=== PATIENT | female | born 1960 | race Asian ===

== ENCOUNTER 2018-10-13 05:16 | Inpatient (IN) | payer OTHER ==
[2018-10-13] VITALS (24 sets, daily range): BP systolic 110–150; BP diastolic 59–82; PULSE 86–98; RESP 16–20; Ht 157.5 cm; Wt 59.2 kg
[~2018-10-13] VITALS: Ht 157.5 cm; Wt 59.2 kg
[2018-10-13] MEDS ORDERED: SOD CHLORIDE 0.9% 1,000 ML IV SCH (06:00)
[2018-10-13] MEDS ORDERED: CEFAZOLIN 2 GM/50 ML (PMX) 50 ML IVPB ONE (06:00)
[2018-10-13] MEDS ORDERED: SUCCINYLCHOLINE CHLORIDE 100 MG/5 ML SYG IV ONE (07:00)
[2018-10-13] MEDS ORDERED: CEFAZOLIN 1 GM INJ ONE (07:00)
[2018-10-13] MEDS ORDERED: BUPIVACAINE 0.25% (MPF) 30 ML INJ ONE (07:03)
--- NOTE | 2018-10-13 07:37 | PREAC ---
Date/Time of Note Date/Time of Note DATE: 10/13/18 TIME: 07:35 Anesthesia Eval and Record Evaluation Time Pre-Procedure Interview DATE: 10/13/18 TIME: 07:35 Age 58 Sex female NPO: 8 hrs Preoperative diagnosis total thyroidectomy enlarged thyroid Planned procedure total thyroidectomy Past Medical History Past Medical History: Includes Cardio: HTN, Dyslipidemia Endo: Diabetes Neuro: Other (eye blindness ) Surgery & Anesthesia Issues No known issue Meds Anticoagulation: No Beta Shea within 24 hr: No Reason Beta Shea not given: Pt. not on B-Shea Current Medications Sodium Chloride 1,000 ml @ 75 mls/hr [id number] IV ; Start 10/13/18 at 06:00; Stop 10/13/18 at 19:19 Meds reviewed: Yes Allergies Coded Allergies: No Known Drug Allergies (Unverified Allergy, Unknown, 10/12/18) Allergies Reviewed: Yes Labs/Studies Labs Reviewed: Reviewed by anesthesiologist test: N/A Pre-procedure Exam Last vitals Vital Signs Date Temp Pulse Resp B/P (MAP) Pulse Ox O2 O2 Flow FiO2 Time Delivery Rate 10/13/18 98.2 97 18 126/76 95 Room Air 06:11 (93) Airway: Adequate mouth opening, Adequate thyromental dist Mallampati: Mallampati IV Teeth: Normal Lung: Normal Heart: Normal ASA Physical Status ASA physical status: 3 Emergency: None Planned Anesthetic General/MAC: ETT Pre-operative Attestations Prior to commencing anesthesia and surgery, the patient was re-evaluated, there was verification of: *The patient's identity *The results of appropriate recent lab work and preoperative vital signs *The above evaluation not changing prior to induction *Anesthetic plan, risk benefits, alternative and complications discussed with patient/family; questions answered; patient/family understands, accepts and wishes to proceed. GERBER SAUNDERS DO Oct 13, 2018 07:37
[2018-10-13] MEDS ORDERED: PROPOFOL 20 ML ONE (07:46)
[2018-10-13] MEDS ORDERED: MIDAZOLAM 1 MG/ML 2 ML INJ ONE (07:46)
[2018-10-13] MEDS ORDERED: LIDOCAINE 1% (MDV) 20 ML INJ ONE (07:47)
[2018-10-13] MEDS ORDERED: DEXAMETHASONE 4 MG/ML 5 ML INJ ONE (07:58)
[2018-10-13] MEDS ORDERED: ONDANSETRON 4 MG INJ ONE (07:58)
[2018-10-13] MEDS ORDERED: LABETALOL HCL 20MG INJ IV PRN (08:00)
[2018-10-13] MEDS ORDERED: HYDROmorphONE 1 MG/5 ML IV SYRINGE IV PRN ×2 (08:00)
[2018-10-13] MEDS ORDERED: ONDANSETRON 4 MG INJ IV PRN (08:00)
[2018-10-13] MEDS ORDERED: hydrALAzine 20 MG INJ IV PRN (08:00)
[2018-10-13] MEDS ORDERED: PHENYLephrine (100 MCG/ML) 5ML SYG ONE (08:08)
[2018-10-13] MEDS: SOD CHLORIDE 0.9% 1,000 ML IV SCH ×3 (09:03→20:49)
--- NOTE | 2018-10-13 09:04 | PAC ---
Date/Time of Note Date/Time of Note DATE: 10/13/18 TIME: 09:04 Post-Anesthesia Notes Post-Anesthesia Note Last documented vital signs Vital Signs Date Temp Pulse Resp B/P (MAP) Pulse Ox O2 O2 Flow FiO2 Time Delivery Rate 10/13/18 98 97 19 99/57 97 Room Air 0904 Activity: WNL Respiratory function: WNL Cardiovascular function: WNL Mental status: Baseline Pain reasonably controlled: Yes Hydration appropriate: Yes Nausea/Vomiting absent: Yes GERBER SAUNDERS DO Oct 13, 2018 09:04
--- NOTE | 2018-10-13 09:13 | OPR ---
Date/Time of Note Date/Time of Note DATE: 10/13/18 TIME: 09:05 Operative Report Procedure Date: Oct 13, 2018 Preoperative Diagnosis right thyroid nodule Postoperative Diagnosis same Operation/Procedure Performed 1. right thyroid lobectomy 2. localized adjacent tissue transfer with the use of skin flaps 12 sq cm defect in the neck 3. therapeutic injection of subcutaneous local anesthesia Surgeon see signature line Healthcare Specialist Mercy Kay PA-C Anesthesia Type: general Estimated Blood Loss: 0 - 10 ml's Transfusion none Specimen right thyroid lobe and isthmus with single short right upper lobe marking and double short right lower lobe marking Grafts/Implants none Complications none Pt Condition Post Procedure: stable Indications This is a 58-year-old female with symptomatic right thyroid nodule. She also has enlargement of the right thyroid lobe causing pressure symptoms with swallowing. She had an FNA showing biphasic criteria 3 however the majority of her complaint is the pressure from the enlarged right thyroid lobe. Careful consideration was made and a full discussion was made with the patient and son regarding a total thyroidectomy versus a right lobectomy. This decision was to be made in the operating room however both options were discussed with the patient and they were okay with the decision to proceed with surgery. Risks alternatives benefits and percent were discussed the patient. She expressed understanding consents to the operation. Procedure Description Patient is taken to the OR and prepped and draped in usual sterile fashion. Surgical time was performed. IV antibiotics were given. Collar incision was made with a 15 blade. Dissection was was taken down to the platysmal layer. Superior inferior platysmal flaps were created. Parada retractors were placed and the strap muscles were divided in the midline and retracted laterally. Immediate attention was focused on the right thyroid lobe which was enlarged and prominent. The left side appeared normal. The right thyroid lobe was then dissected out. The middle thyroidal vein was ligated with had a LigaSure. The inferior superior poles were carefully dissected out. The isthmus and the pretracheal space was also dissected out bluntly with tonsils. Careful dissection was made to keep the right recurrent laryngeal nerve out of harm's way and the right thyroid lobe was mobilized. Inspection was then made of the left thyroid lobe and the left thyroid lobe appeared to be normal but attenuated in size. Further dissection the left thyroid lobe was not made. The isthmus was also divided left of midline. In the right thyroid lobe was performed. Superior pole of the right thyroid lobe was marked with a single short stitch. Right inferior lobe was marked with double short stitch. Hemostasis was established in the surgical bed. The specimen was sent. The surgical site was irrigated with water and a Valsalva maneuver 40 cm of water was performed. No evidence of any bleeding was found. Strap muscles were reapproximated in the midline with interrupted 3-0 Vicryl. The platysmal flaps were then reapproximated with interrupted 3-0 Vicryl. The superior inferior localized adjacent tissue transfer with use of skin flaps was performed to close the large skin defect in a multilayer fashion with interrupted 3-0 Vicryl and running 4-0 Monocryl. Therapeutic contains local anesthesia was injected at the incision site. Steri-Strips and dry dressings were applied. John MARTINEZ Oct 13, 2018 09:13
[2018-10-13] MEDS ORDERED: HYDROCODONE/APAP (5/325) TAB PO PRN (09:30)
[2018-10-13] MEDS ORDERED: HYDROmorphONE 0.5 MG/0.5 ML SYG IV PRN (09:30)
[2018-10-13] MEDS ORDERED: CEFAZOLIN 2 GM/50 ML (PMX) 50 ML IVPB SCH (10:00)
[2018-10-13] MEDS ORDERED: CHOL100062 PO (11:39)
[2018-10-13] MEDS ORDERED: SIMV5TAB14 PO (11:39)
[2018-10-13] MEDS ORDERED: METF-849 PO (11:39)
--- NOTE | 2018-10-13 13:23 | CONS ---
Assessment/Plan Assessment/Plan Problems: (1) Right thyroid nodule Status: Chronic Comment: Pathology is pending at this time. Patient seems to be comfortably postop. It is too soon to tell whether or not we will need to get thyroid hormone replacement therapy as this was a partial thyroidectomy as opposed to a subtotal or total thyroidectomy (2) S/P partial thyroidectomy Onset Date: ~ 10/13/2018 Status: Acute Comment: Patient is postop and appears to be doing well. Further determination based on formal pathology (3) Diabetes mellitus type 2 in nonobese Status: Chronic Comment: Patient is stable on metformin well controlled (4) Hyperlipidemia Status: Chronic Comment: Continue with statin therapy. Qualifiers: Qualified Codes: E78.00 - Pure hypercholesterolemia, unspecified (5) Vitamin D deficiency Status: Chronic Comment: Noted. (6) Enterococcus UTI Status: Acute Comment: Anabiotic's as appropriate. Assessment/Plan (Daily) Patient's primary care physician is Chelo Arreguin FAX # [phone] Consultation Date/Type/Reason Admit Date/Time Oct 13, 2018 at 05:16 Date of Consultation: Oct 13, 2018 Type of Consult Endocrinology Reason for Consultation Status post partial [id number]-ehtac due to nodule Marlton 3 biopsy, and mass symptoms Requesting Provider: PADMAJA EAST MD Date/Time of Note DATE: 10/13/18 TIME: 13:15 Hx of Present Illness Pleasant 58-year-old [place] woman who has had a many year history of a right thyroid nodule. She had mass symptoms and ultimately underwent ultrasound- guided FNA biopsy at [facility] at [facility]. The final diagnosis was atypia of undetermined significance, Marl[place] category 3, cellular cytologic preparations show few follicular cells, numerous sheets and clusters of Hurthle cells, few small aggregate of crushed lymphocytes and blood. Colloid is absent to scant. Differential diagnosis includes Hurthle cell neoplasm and a benign lesion versus lymphocytic thyroiditis versus a bursal cell neoplasm. Recommendation was made for surgical resection on February 11, 2018. As per [facility] pathology. [place] speaking female with an ice pack on her neck Constitutional: no complaints Endocrine: no complaints Past Medical History Medical History: diabetes, high cholesterol, other (Goiter with mass symptoms; enterococcus UTI) Home Meds Reported Medications Simvastatin* (Simvastatin*) 5 Mg Tablet, 20 MG PO QHS, #30 TAB 10/13/18 Cholecalciferol* (Vitamin D3*) 1,000 Unit Tablet, 2000 UNIT PO BID, TAB 10/13/18 Metformin* (Glucophage*) 500 Mg Tab, 500 MG PO BID, #30 TAB 10/13/18 Medications Current Medications Sodium Chloride 1,000 ml @ 75 mls/hr [id number] IV ; Start 10/13/18 at 06:00; Stop 10/13/18 at 19:19 Hydromorphone HCl (Dilaudid) 0.2 mg PACU PRN IV MILD PAIN 1-3; Start 10/13/18 at 08:00; Stop 10/13/18 at 16:00 Hydromorphone HCl (Dilaudid) 0.4 mg PACU PRN IV MOD PAIN 4-6; Start 10/13/18 at 08:00; Stop 10/13/18 at 16:00 Ondansetron HCl (Zofran Inj) 4 mg PACU ORDER PRN IV NAUSEA/VOMITING; Start 10/13/18 at 08:00; Stop 10/13/18 at 16:00 Labetalol HCl (Labetalol) 5 mg PACU ORDER PRN IV HIGH BLOOD PRESSURE; Start 10/13/18 at 08:00; Stop 10/13/18 at 16:00 Hydralazine HCl (Apresoline) 5 mg PACU ORDER PRN IV HIGH BLOOD PRESSURE; Start 10/13/18 at 08:00; Stop 10/13/18 at 16:00 Hydromorphone HCl (Dilaudid) 0.5 mg Q4H PRN IV PAIN LEVEL 6-10; Start 10/13/18 at 09:30 Acetaminophen/ Hydrocodone Bitart ([place] (5/325)) 1 tab Q6H PRN PO PAIN LEVEL 6-10; Start 10/13/18 at 09:30 Sodium Chloride 1,000 ml @ 100 mls/hr Q10H IV Last administered on 10/13/18at 09:03; Admin Dose 100 MLS/HR; Start 10/13/18 at 09:03 Cefazolin Sodium/ Dextrose 50 ml @ 100 mls/hr Q8H IVPB ; Start 10/13/18 at 15:00; Stop 10/14/18 at 14:59 Miscellaneous Information (* Miscellaneous Pharmacy Order) Discontinue current oral sulfonylur... ONCE ONCE XX ; Start 10/13/18 at 13:00; Stop 10/13/18 at 13:01; Status UNV Diagnostic Test (Pha) (Accu-Chek) 1 ea 02 XX ; Start 10/14/18 at 02:00; Status UNV Miscellaneous Information (* Miscellaneous Pharmacy Order) HYPOGLYCEMIA PROTOCOL w... ONCE ONCE XX ; Start 10/13/18 at 13:00; Stop 10/13/18 at 13:01; Status UNV Insulin Aspart (Novolog Insulin Pen) NOVOLOG *MILD* ALGORITHM WITH MEALS BEDTIME SC ; Start 10/13/18 at 18:05; Status UNV Miscellaneous Information (* Miscellaneous Pharmacy Order) Discontinue all previ... ONCE ONCE XX ; Start 10/13/18 at 13:00; Stop 10/13/18 at 13:01; Status UNV Allergies: Coded Allergies: No Known Drug Allergies (Unverified Allergy, Unknown, 10/12/18) Past Surgical History Past Surgical Hx: noncontributory Family History Significant Family History: no pertinent family hx (Negative for thyroid cancer) Social History Alcohol Use: none Smoking Status: Never smoker Drug Use: none Exam/Review of Systems Exam Vitals Vital Signs Date Temp Pulse Resp B/P (MAP) Pulse Ox O2 O2 Flow FiO2 Time Delivery Rate 10/13/18 Nasal 2.0 11:29 Cannula 10/13/18 98.6 88 18 144/69 96 11:25 (94) Constitutional: alert Head: normocephalic, atraumatic ENMT: nl external ears & nose, nl lips & teeth, nl nasal mucosa & septum, mucosa pink and moist Neck: supple, other (Anterior neck dressing with some tenderness near there) Respiratory: clear to auscultation, normal air movement Cardiovascular: regular rate and rhythm, nl pulses Gastrointestinal: soft, nl liver, spleen, non-tender Results Result Diagram: 10/13/18 1206 10/13/18 1206 Results 24hrs Laboratory Tests Test 10/13/18 05:53 10/13/18 11:41 10/13/18 12:06 Bedside Glucose 107 126 White Blood Count 8.5 Red Blood Count 4.37 Hemoglobin 13.2 Hematocrit 40.1 Mean Corpuscular Volume 91.8 Mean Corpuscular Hemoglobin 30.2 Mean Corpuscular Hemoglobin Concent 32.9 Red Cell Distribution Width 11.7 Platelet Count 258 Mean Platelet Volume 8.7 Immature Granulocytes % 0.600 H Neutrophils % 89.6 H Lymphocytes % 9.0 L Monocytes % 0.6 Eosinophils % 0.0 Basophils % 0.2 Nucleated Red Blood Cells % 0.0 Immature Granulocytes # 0.050 H Neutrophils # 7.6 H Lymphocytes # 0.8 Monocytes # 0.1 L Eosinophils # 0.0 Basophils # 0.0 Nucleated Red Blood Cells # 0.0 Sodium Level 143 Potassium Level 4.3 Chloride Level 104 Carbon Dioxide Level 25 Anion Gap 14 H Blood Urea Nitrogen 10 Creatinine 0.44 Est Glomerular Filtrat Rate mL/min > 60 Glucose Level 125 Calcium Level 8.9 Total Bilirubin 0.3 Direct Bilirubin 0.00 Indirect Bilirubin 0.3 Aspartate Amino Transf (AST/SGOT) 25 Alanine Aminotransferase (ALT/SGPT) 19 Alkaline Phosphatase 66 Total Protein 7.6 Albumin 4.5 Globulin 3.10 Albumin/Globulin Ratio 1.45 Medications Medication Current Medications Sodium Chloride 1,000 ml @ 75 mls/hr [id number] IV ; Start 10/13/18 at 06:00; Stop 10/13/18 at 19:19 Hydromorphone HCl (Dilaudid) 0.2 mg PACU PRN IV MILD PAIN 1-3; Start 10/13/18 at 08:00; Stop 10/13/18 at 16:00 Hydromorphone HCl (Dilaudid) 0.4 mg PACU PRN IV MOD PAIN 4-6; Start 10/13/18 at 08:00; Stop 10/13/18 at 16:00 Ondansetron HCl (Zofran Inj) 4 mg PACU ORDER PRN IV NAUSEA/VOMITING; Start 10/13/18 at 08:00; Stop 10/13/18 at 16:00 Labetalol HCl (Labetalol) 5 mg PACU ORDER PRN IV HIGH BLOOD PRESSURE; Start 10/13/18 at 08:00; Stop 10/13/18 at 16:00 Hydralazine HCl (Apresoline) 5 mg PACU ORDER PRN IV HIGH BLOOD PRESSURE; Start 10/13/18 at 08:00; Stop 10/13/18 at 16:00 Hydromorphone HCl (Dilaudid) 0.5 mg Q4H PRN IV PAIN LEVEL 6-10; Start 10/13/18 at 09:30 Acetaminophen/ Hydrocodone Bitart ([place] (5/325)) 1 tab Q6H PRN PO PAIN LEVEL 6-10; Start 10/13/18 at 09:30 Sodium Chloride 1,000 ml @ 100 mls/hr Q10H IV Last administered on 10/13/18at 09:03; Admin Dose 100 MLS/HR; Start 10/13/18 at 09:03 Cefazolin Sodium/ Dextrose 50 ml @ 100 mls/hr Q8H IVPB ; Start 10/13/18 at 15:00; Stop 10/14/18 at 14:59 Miscellaneous Information (* Miscellaneous Pharmacy Order) Discontinue current oral sulfonylur... ONCE ONCE XX ; Start 10/13/18 at 13:00; Stop 10/13/18 at 13:01; Status UNV Diagnostic Test (Pha) (Accu-Chek) 1 XX ; Start 10/14/18 at 02:00; Status UNV Miscellaneous Information (* Miscellaneous Pharmacy Order) HYPOGLYCEMIA PROTOCOL w... ONCE ONCE XX ; Start 10/13/18 at 13:00; Stop 10/13/18 at 13:01; Status UNV Insulin Aspart (Novolog Insulin Pen) NOVOLOG *MILD* ALGORITHM WITH MEALS BEDTIME SC ; Start 10/13/18 at 18:05; Status UNV Miscellaneous Information (* Miscellaneous Pharmacy Order) Discontinue all previ... ONCE ONCE XX ; Start 10/13/18 at 13:00; Stop 10/13/18 at 13:01; Status UNV DEMOND PRATER MD Oct 13, 2018 13:22
--- NOTE | 2018-10-13 15:50 | QN ---
Documentation Comment seen and examined PADMAJA EAST MD Oct 13, 2018 15:50
[2018-10-13] MEDS: CEFAZOLIN 2 GM/50 ML (PMX) 50 ML IVPB SCH ×2 (16:17→23:39)
--- NOTE | 2018-10-13 16:22 | HP ---
DATE OF ADMISSION: 10/13/2018 HISTORY OF PRESENTING ILLNESS: This is a 58-year-old female with a past medical history of diabetes, hyperlipidemia, goiter, Enterococcus UTI, presented to the [facility] after being admitted by Dr. Tilely for for right thyroid lobectomy. The patient was noted to have symptomatic right thyroid nodule, had enlargement of the right thyroid lobe causing pressure symptoms with swallowing. She had FNA showing . Majority of her complaint was pressure from the enlarged thyroid gland. Discussion was made with the patient's son regarding total thyroidectomy versus right lobectomy. D ecision was made in the operating room. Both options were discussed and the patient, were okay to pr oceed with the surgery and the patient had right thyroid lobectomy done. Currently, the patient feel s that she is feeling a little weak. She is trying to eat. On arrival on the floor, blood pressure 134/78, afebrile, heart rate 86, respirations 18. Labs showed white count 8.5, hemoglobin 13.2, plat elet count 258. BMP within normal limit and patient was admitted for further management. PAST MEDICAL HISTORY: 1. Diabetes. 2. Hyperlipidemia. 3. Vitamin D deficiency. 4. Enterococcus UTI. 5. Right thyroid nodule, status post lobectomy. ALLERGIES: NONE. MEDICATIONS TAKING AT HOME: 1. Simvastatin 20 mg at bedtime. 2. Metformin 500 b.i.d. 3. Vitamin D. SOCIAL HISTORY: No history of smoking, alcohol or any drug use. Lives in [place]. FAMILY HISTORY: Noncontributory. REVIEW OF SYSTEMS: Denies any chest pain, any shortness of breath. The patient is status post right lobectomy. Denies any nausea, vomiting, diarrhea, headache, blurry vision. PHYSICAL EXAMINATION: VITAL SIGNS: Currently, blood pressure 134/78, afebrile, heart rate 86, respirations 18, saturating 96%. GENERAL: The patient is awake, alert, oriented. NECK: Supple. Anterior dressing with some tenderness. LUNGS: Clear to auscultation. ABDOMEN: Soft, nontender, nondistended. EXTREMITIES: No clubbing, cyanosis or edema. LABORATORY DATA: BMP within normal limits. White count 8.5, hemoglobin 13.2, platelet count 258. ASSESSMENT AND PLAN: This is a 58-year-old female with: 1. Right thyroid nodule, status post partial thyroidectomy with right lobectomy. 2. Diabetes type 2. 3. Hyperlipidemia. 4. Vitamin D deficiency. 5. Enterococcus urinary tract infection, questionable. PLAN: At this period of time, the patient is admitted to med/surg. The patient will be on pain cont rol, IV fluids. Endocrine consultation has been consulted. We will also check for ionized calcium. Rest of the treatment will depend on the patient's hospitalization course. Dictated By: PADMAJA SOLANO/JOAN Conf#: [id number] DID#: [id number] CC: JOSE TILLEY MD; BANDAR BUCHANAN MD;*EndCC*
[2018-10-13] MEDS: CIPROFLOXACIN 500 MG TAB PO SCH (17:35)
[2018-10-13] MEDS: INSULIN ASPART [NOVOLOG] 3 ML PEN SC SCH ×2 (17:36→20:53)
[2018-10-14] MEDS ORDERED: ACCU-CHEK XX SCH (02:00)
[2018-10-14 02:19] VITALS: BP 122/72; RESP 18
[2018-10-14] MEDS: CIPROFLOXACIN 500 MG TAB PO SCH ×2 (06:00→17:26)
[2018-10-14] MEDS: SOD CHLORIDE 0.9% 1,000 ML IV SCH (06:19)
[2018-10-14] MEDS: CEFAZOLIN 2 GM/50 ML (PMX) 50 ML IVPB SCH (06:41)
[2018-10-14 07:25] VITALS: BP 139/73; PULSE 78; RESP 16
[2018-10-14] MEDS: INSULIN ASPART [NOVOLOG] 3 ML PEN SC SCH ×3 (07:59→17:26)
--- NOTE | 2018-10-14 11:39 | PN ---
Date/Time of Note Date/Time of Note DATE: 10/14/18 TIME: 11:36 Assessment/Plan VTE Prophylaxis Risk score (from [facility])>0 risk: 8 SCD applied (from [facility]): Yes Pharmacological prophylaxis: NA/contraindicated Pharm contraindication: surgical contra Lines/Catheters IV Catheter Type (from [facility]): Peripheral IV Assessment/Plan Hospital Course 1. Right thyroid nodule, status post partial thyroidectomy with right lobectomy. 2. Diabetes mellitus type 2. 3. Hyperlipidemia. 4. Vitamin D deficiency. 5. Enterococcus urinary tract infection, questionable 6. HX of bilateral lens replacement after cataract 2006. Assessment/Plan -medsurg -DVT ambulation or SCD -GI prophylaxis start Protonix -ionized CAlcium is normal -Endocrinology consult Dr Ordonez -TSH tmv -dc tomorrow if ok dr Ford Result Diagram: 10/14/186 10/14/18 0436 Results 24hrs Laboratory Tests Test 10/13/18 11:41 10/13/18 12:06 10/13/18 17:29 10/13/18 20:52 Bedside Glucose 126 166 163 White Blood Count 8.5 Red Blood Count 4.37 Hemoglobin 13.2 Hematocrit 40.1 Mean Corpuscular Volume 91.8 Mean Corpuscular 30.2 Hemoglobin Mean Corpuscular 32.9 Hemoglobin Concent Red Cell Distribution 11.7 Width Platelet Count 258 Mean Platelet Volume 8.7 Immature Granulocytes % 0.600 H Neutrophils % 89.6 H Lymphocytes % 9.0 L Monocytes % 0.6 Eosinophils % 0.0 Basophils % 0.2 Nucleated Red Blood 0.0 Cells % Immature Granulocytes # 0.050 H Neutrophils # 7.6 H Lymphocytes # 0.8 Monocytes # 0.1 L Eosinophils # 0.0 Basophils # 0.0 Nucleated Red Blood 0.0 Cells # Sodium Level 143 Potassium Level 4.3 Chloride Level 104 Carbon Dioxide Level 25 Anion Gap 14 H Blood Urea Nitrogen 10 Creatinine 0.44 Est Glomerular Filtrat > 60 Rate mL/min Glucose Level 125 Calcium Level 8.9 Total Bilirubin 0.3 Direct Bilirubin 0.00 Indirect Bilirubin 0.3 Aspartate Amino 25 Transf (AST/SGOT) Alanine 19 Aminotransferase (ALT/SG PT) Alkaline Phosphatase 66 Total Protein 7.6 Albumin 4.5 Globulin 3.10 Albumin/Globulin Ratio 1.45 Hepatitis C Antibody NEGATIVE Test 10/14/18 04:36 10/14/18 07:58 White Blood Count 10.0 Red Blood Count 4.29 Hemoglobin 13.0 Hematocrit 38.7 Mean Corpuscular Volume 90.2 Mean Corpuscular 30.3 Hemoglobin Mean Corpuscular 33.6 Hemoglobin Concent Red Cell Distribution 11.8 Width Platelet Count 282 Mean Platelet Volume 8.8 Immature Granulocytes % 0.600 H Neutrophils % 76.9 Lymphocytes % 16.0 Monocytes % 6.4 Eosinophils % 0.0 Basophils % 0.1 Nucleated Red Blood 0.0 Cells % Immature Granulocytes # 0.060 H Neutrophils # 7.7 H Lymphocytes # 1.6 Monocytes # 0.6 Eosinophils # 0.0 Basophils # 0.0 Nucleated Red Blood 0.0 Cells # Sodium Level 144 Potassium Level 4.6 Chloride Level 106 Carbon Dioxide Level 26 Anion Gap 12 Blood Urea Nitrogen 9 Creatinine 0.39 L Est Glomerular Filtrat > 60 Rate mL/min Glucose Level 114 Hemoglobin A1c 5.9 Calcium Level 9.4 Ionized Calcium 1.2 (Measured) Total Bilirubin 0.3 Direct Bilirubin 0.00 Indirect Bilirubin 0.3 Aspartate Amino 20 Transf (AST/SGOT) Alanine 14 Aminotransferase (ALT/SG PT) Alkaline Phosphatase 55 Total Protein 7.1 Albumin 4.1 Globulin 3.00 Albumin/Globulin Ratio 1.36 Bedside Glucose 105 Subjective 24 Hr Interval Summary Constitutional: no complaints, improved Exam/Review of Systems Exam Vitals Vital Signs Date Temp Pulse Resp B/P (MAP) Pulse Ox O2 O2 Flow FiO2 Time Delivery Rate 10/14/18 98.4 78 16 139/73 99 Nasal 07:25 (95) Cannula 10/13/18 2.0 11:29 Intake and Output 10/13/18 10/13/18 10/14/18 1515:00 23:00 07:00 IntakeIntake Total 1000 ml 1350 ml 1400 ml OutputOutput Total 20 ml BalanceBalance 980 ml 1350 ml 1400 ml Constitutional: alert, oriented Neck: supple, other (surgical dressing) Gastrointestinal: soft Musculoskeletal: nl extremities to inspection Skin: other (skin scars) Results Results 24hrs Laboratory Tests Test 10/13/18 11:41 10/13/18 12:06 10/13/18 17:29 10/13/18 20:52 Bedside Glucose 126 166 163 White Blood Count 8.5 Red Blood Count 4.37 Hemoglobin 13.2 Hematocrit 40.1 Mean Corpuscular Volume 91.8 Mean Corpuscular 30.2 Hemoglobin Mean Corpuscular 32.9 Hemoglobin Concent Red Cell Distribution 11.7 Width Platelet Count 258 Mean Platelet Volume 8.7 Immature Granulocytes % 0.600 H Neutrophils % 89.6 H Lymphocytes % 9.0 L Monocytes % 0.6 Eosinophils % 0.0 Basophils % 0.2 Nucleated Red Blood 0.0 Cells % Immature Granulocytes # 0.050 H Neutrophils # 7.6 H Lymphocytes # 0.8 Monocytes # 0.1 L Eosinophils # 0.0 Basophils # 0.0 Nucleated Red Blood 0.0 Cells # Sodium Level 143 Potassium Level 4.3 Chloride Level 104 Carbon Dioxide Level 25 Anion Gap 14 H Blood Urea Nitrogen 10 Creatinine 0.44 Est Glomerular Filtrat > 60 Rate mL/min Glucose Level 125 Calcium Level 8.9 Total Bilirubin 0.3 Direct Bilirubin 0.00 Indirect Bilirubin 0.3 Aspartate Amino 25 Transf (AST/SGOT) Alanine 19 Aminotransferase (ALT/SG PT) Alkaline Phosphatase 66 Total Protein 7.6 Albumin 4.5 Globulin 3.10 Albumin/Globulin Ratio 1.45 Hepatitis C Antibody NEGATIVE Test 10/14/18 04:36 10/14/18 07:58 White Blood Count 10.0 Red Blood Count 4.29 Hemoglobin 13.0 Hematocrit 38.7 Mean Corpuscular Volume 90.2 Mean Corpuscular 30.3 Hemoglobin Mean Corpuscular 33.6 Hemoglobin Concent Red Cell Distribution 11.8 Width Platelet Count 282 Mean Platelet Volume 8.8 Immature Granulocytes % 0.600 H Neutrophils % 76.9 Lymphocytes % 16.0 Monocytes % 6.4 Eosinophils % 0.0 Basophils % 0.1 Nucleated Red Blood 0.0 Cells % Immature Granulocytes # 0.060 H Neutrophils # 7.7 H Lymphocytes # 1.6 Monocytes # 0.6 Eosinophils # 0.0 Basophils # 0.0 Nucleated Red Blood 0.0 Cells # Sodium Level 144 Potassium Level 4.6 Chloride Level 106 Carbon Dioxide Level 26 Anion Gap 12 Blood Urea Nitrogen 9 Creatinine 0.39 L Est Glomerular Filtrat > 60 Rate mL/min Glucose Level 114 Hemoglobin A1c 5.9 Calcium Level 9.4 Ionized Calcium 1.2 (Measured) Total Bilirubin 0.3 Direct Bilirubin 0.00 Indirect Bilirubin 0.3 Aspartate Amino 20 Transf (AST/SGOT) Alanine 14 Aminotransferase (ALT/SG PT) Alkaline Phosphatase 55 Total Protein 7.1 Albumin 4.1 Globulin 3.00 Albumin/Globulin Ratio 1.36 Bedside Glucose 105 Medications Medication Current Medications Hydromorphone HCl (Dilaudid) 0.5 mg Q4H PRN IV PAIN LEVEL 6-10; Start 10/13/18 at 09:30 Acetaminophen/ Hydrocodone Bitart ([place] (5/325)) 1 tab Q6H PRN PO PAIN LEVEL 6-10; Start 10/13/18 at 09:30 Sodium Chloride 1,000 ml @ 100 mls/hr Q10H IV Last administered on 10/14/18at 06:19; Admin Dose 100 MLS/HR; Start 10/13/18 at 09:03 Cefazolin Sodium/ Dextrose 50 ml @ 100 mls/hr Q8H IVPB Last administered on 10/14/18at 06:41; Admin Dose 100 MLS/HR; Start 10/13/18 at 15:00; Stop 10/14/18 at 14:59 Diagnostic Test (Pha) (Accu-Chek) 1 ea 02 XX ; Start 10/14/18 at 02:00 Insulin Aspart (Novolog Insulin Pen) NOVOLOG *MILD* ALGORITHM WITH MEALS BEDTIME SC Last administered on 10/13/18at 17:36; Admin Dose 1 UNIT; Start 10/13/18 at 18:05 Ciprofloxacin (Cipro) 500 mg BID@06,18 PO Last administered on 10/14/18at 06:00; Admin Dose 500 MG; Start 10/13/18 at 18:00; Stop 10/16/18 at 17:59 MICHELLE MOSELEY Oct 14, 2018 11:39
[2018-10-14] MEDS ORDERED: PANTOPRAZOLE (EC) 40 MG TAB PO SCH (12:00)
--- NOTE | 2018-10-14 12:59 | CONS ---
Assessment/Plan Assessment/Plan Problems: (1) S/P partial thyroidectomy Onset Date: ~ 10/13/2018 Status: Acute Comment: She is stable postop and doing well. At this time is my opinion from an endocrine standpoint she could be discharged home. She should have follow-up chemistry panel and thyroid function tests in 2 weeks. If this can be done at her primary care physician's office although we would be honored to see her at my office. Please note she would most likely see my partner Dr. Ayse Green who speaks her [place] language (2) Diabetes mellitus type 2 in nonobese Status: Chronic Comment: Good glycemic control (3) Hyperlipidemia Status: Chronic Comment: Good control Qualifiers: Hyperlipidemia type: pure hypercholesterolemia Qualified Codes: E78.00 - Pure hypercholesterolemia, unspecified (4) Vitamin D deficiency Status: Chronic Comment: Adequate control Consultation Date/Type/Reason Admit Date/Time Oct 13, 2018 at 05:16 Initial Consult Date 10/13/18 Type of Consult Endocrinology Reason for Consultation Status post partial thyroidectomy for right sided nodule, pathology pending Requesting Provider: PADMAJA EAST MD Date/Time of Note DATE: 10/14/18 TIME: 12:56 24 HR Interval Summary Free Text/Dictation Vision ambulating in hallway without complaints. She reports she would like to go home Constitutional: no complaints Detailed Summary Endocrine: no complaints Exam/Review of Systems Exam Vitals Vital Signs Date Temp Pulse Resp B/P (MAP) Pulse Ox O2 O2 Flow FiO2 Time Delivery Rate 10/14/18 98.4 78 16 139/73 99 Nasal 07:25 (95) Cannula 10/13/18 2.0 11:29 Intake and Output 10/13/18 10/13/18 10/14/18 1515:00 23:00 07:00 IntakeIntake Total 1000 ml 1350 ml 1400 ml OutputOutput Total 20 ml BalanceBalance 980 ml 1350 ml 1400 ml Constitutional: alert, oriented Eyes: nl conjunctiva Respiratory: clear to auscultation, normal air movement Cardiovascular: regular rate and rhythm, nl pulses Gastrointestinal: soft, nl liver, spleen, non-tender Results Result Diagram: 10/14/18 0436 10/14/18 0436 Results 24hrs Laboratory Tests Test 10/13/18 17:29 10/13/18 20:52 10/14/18 04:36 10/14/18 07:58 Bedside Glucose 166 163 105 White Blood Count 10.0 Red Blood Count 4.29 Hemoglobin 13.0 Hematocrit 38.7 Mean Corpuscular Volume 90.2 Mean Corpuscular 30.3 Hemoglobin Mean Corpuscular 33.6 Hemoglobin Concent Red Cell Distribution 11.8 Width Platelet Count 282 Mean Platelet Volume 8.8 Immature Granulocytes % 0.600 H Neutrophils % 76.9 Lymphocytes % 16.0 Monocytes % 6.4 Eosinophils % 0.0 Basophils % 0.1 Nucleated Red Blood 0.0 Cells % Immature Granulocytes # 0.060 H Neutrophils # 7.7 H Lymphocytes # 1.6 Monocytes # 0.6 Eosinophils # 0.0 Basophils # 0.0 Nucleated Red Blood 0.0 Cells # Sodium Level 144 Potassium Level 4.6 Chloride Level 106 Carbon Dioxide Level 26 Anion Gap 12 Blood Urea Nitrogen 9 Creatinine 0.39 L Est Glomerular Filtrat > 60 Rate mL/min Glucose Level 114 Hemoglobin A1c 5.9 Calcium Level 9.4 Ionized Calcium 1.2 (Measured) Total Bilirubin 0.3 Direct Bilirubin 0.00 Indirect Bilirubin 0.3 Aspartate Amino 20 Transf (AST/SGOT) Alanine 14 Aminotransferase (ALT/SG PT) Alkaline Phosphatase 55 Total Protein 7.1 Albumin 4.1 Globulin 3.00 Albumin/Globulin Ratio 1.36 Test 10/14/18 11:52 Bedside Glucose 122 Medications Medication Current Medications Hydromorphone HCl (Dilaudid) 0.5 mg Q4H PRN IV PAIN LEVEL 6-10; Start 10/13/18 at 09:30 Acetaminophen/ Hydrocodone Bitart ([place] (5/325)) 1 tab Q6H PRN PO PAIN LEVEL 6-10; Start 10/13/18 at 09:30 Cefazolin Sodium/ Dextrose 50 ml @ 100 mls/hr Q8H IVPB Last administered on 10/14/18at 06:41; Admin Dose 100 MLS/HR; Start 10/13/18 at 15:00; Stop 10/14/18 at 14:59 Diagnostic Test (Pha) (Accu-Chek) 1 ea 02 XX ; Start 10/14/18 at 02:00 Insulin Aspart (Novolog Insulin Pen) NOVOLOG *MILD* ALGORITHM WITH MEALS BEDTIME SC Last administered on 10/13/18at 17:36; Admin Dose 1 UNIT; Start 10/13/18 at 18:05 Ciprofloxacin (Cipro) 500 mg BID@06,18 PO Last administered on 10/14/18at 06:00; Admin Dose 500 MG; Start 10/13/18 at 18:00; Stop 10/16/18 at 17:59 Pantoprazole (Protonix Tab) 40 mg DAILY@06 PO Last administered on 10/14/18at 11:53; Admin Dose 40 MG; Start 10/14/18 at 12:00 DEMOND PRATER MD Oct 14, 2018 12:59
--- NOTE | 2018-10-14 13:01 | PDOCDIS ---
Discharge Instructions DIAGNOSIS Discharge Diagnosis s/p partial thyroidectomy CONDITION Pixle2Ox Patient Condition: [id number] Stable HOME CARE INSTRUCTIONS: [id number] Special Diet: [id number] [id number] Activity Restrictions: [id number] Slowly Increase Activity Rest between Activity Avoid heavy lifting [id number] Bathing Restrictions: [id number] Sponge Bath FOLLOW UP/APPOINTMENTS Follow-up Plan PCP 1 week -endocrinology f/up dr Ordonez with Bryan Kelley -dr Tilley office 2 weeks SCHOOL/WORK RELEASE May return to School/Work with: With Restrictions MICHELLE MOSELEY Oct 14, 2018 13:01
--- NOTE | 2018-10-14 13:03 | PN ---
Date/Time of Note Date/Time of Note DATE: 10/14/18 TIME: 13:02 Assessment/Plan VTE Prophylaxis Risk score (from [facility])>0 risk: 8 SCD applied (from [facility]): Yes Pharmacological prophylaxis: other Lines/Catheters IV [facility]ter [facility] ([facility]): Peripheral IV Assessment/Plan Assessment/Plan s/p right thyroid lobectomy doing well dc home today Result Diagram: 10/14/18 0436 10/14/18 0436 Results 24hrs Laboratory Tests Test 10/13/18 17:29 10/13/18 20:52 10/14/18 04:36 10/14/18 07:58 Bedside Glucose 166 163 105 White Blood Count 10.0 Red Blood Count 4.29 Hemoglobin 13.0 Hematocrit 38.7 Mean Corpuscular Volume 90.2 Mean Corpuscular 30.3 Hemoglobin Mean Corpuscular 33.6 Hemoglobin Concent Red Cell Distribution 11.8 Width Platelet Count 282 Mean Platelet Volume 8.8 Immature Granulocytes % 0.600 H Neutrophils % 76.9 Lymphocytes % 16.0 Monocytes % 6.4 Eosinophils % 0.0 Basophils % 0.1 Nucleated Red Blood 0.0 Cells % Immature Granulocytes # 0.060 H Neutrophils # 7.7 H Lymphocytes # 1.6 Monocytes # 0.6 Eosinophils # 0.0 Basophils # 0.0 Nucleated Red Blood 0.0 Cells # Sodium Level 144 Potassium Level 4.6 Chloride Level 106 Carbon Dioxide Level 26 Anion Gap 12 Blood Urea Nitrogen 9 Creatinine 0.39 L Est Glomerular Filtrat > 60 Rate mL/min Glucose Level 114 Hemoglobin A1c 5.9 Calcium Level 9.4 Ionized Calcium 1.2 (Measured) Total Bilirubin 0.3 Direct Bilirubin 0.00 Indirect Bilirubin 0.3 Aspartate Amino 20 Transf (AST/SGOT) Alanine 14 Aminotransferase (ALT/SG PT) Alkaline Phosphatase 55 Total Protein 7.1 Albumin 4.1 Globulin 3.00 Albumin/Globulin Ratio 1.36 Test 10/14/18 11:52 Bedside Glucose 122 Subjective 24 Hr Interval Summary Free Text/Dictation doing well, voice intact Exam/Review of Systems Exam Vitals Vital Signs Date Temp Pulse Resp B/P (MAP) Pulse Ox O2 O2 Flow FiO2 Time Delivery Rate 10/14/18 98.4 78 16 139/73 99 Nasal 07:25 (95) Cannula 10/13/18 2.0 11:29 Intake and Output 10/13/18 10/13/18 10/14/18 1515:00 23:00 07:00 IntakeIntake Total 1000 ml 1350 ml 1400 ml OutputOutput Total 20 ml BalanceBalance 980 ml 1350 ml 1400 ml Exam c/d/i Results Results 24hrs Laboratory Tests Test 10/13/18 17:29 10/13/18 20:52 10/14/18 04:36 10/14/18 07:58 Bedside Glucose 166 163 105 White Blood Count 10.0 Red Blood Count 4.29 Hemoglobin 13.0 Hematocrit 38.7 Mean Corpuscular Volume 90.2 Mean Corpuscular 30.3 Hemoglobin Mean Corpuscular 33.6 Hemoglobin Concent Red Cell Distribution 11.8 Width Platelet Count 282 Mean Platelet Volume 8.8 Immature Granulocytes % 0.600 H Neutrophils % 76.9 Lymphocytes % 16.0 Monocytes % 6.4 Eosinophils % 0.0 Basophils % 0.1 Nucleated Red Blood 0.0 Cells % Immature Granulocytes # 0.060 H Neutrophils # 7.7 H Lymphocytes # 1.6 Monocytes # 0.6 Eosinophils # 0.0 Basophils # 0.0 Nucleated Red Blood 0.0 Cells # Sodium Level 144 Potassium Level 4.6 Chloride Level 106 Carbon Dioxide Level 26 Anion Gap 12 Blood Urea Nitrogen 9 Creatinine 0.39 L Est Glomerular Filtrat > 60 Rate mL/min Glucose Level 114 Hemoglobin A1c 5.9 Calcium Level 9.4 Ionized Calcium 1.2 (Measured) Total Bilirubin 0.3 Direct Bilirubin 0.00 Indirect Bilirubin 0.3 Aspartate Amino 20 Transf (AST/SGOT) Alanine 14 Aminotransferase (ALT/SG PT) Alkaline Phosphatase 55 Total Protein 7.1 Albumin 4.1 Globulin 3.00 Albumin/Globulin Ratio 1.36 Test 10/14/18 11:52 Bedside Glucose 122 Medications Medication Current Medications Hydromorphone HCl (Dilaudid) 0.5 mg Q4H PRN IV PAIN LEVEL 6-10; Start 10/13/18 at 09:30 Acetaminophen/ Hydrocodone Bitart ([place] (5/325)) 1 tab Q6H PRN PO PAIN LEVEL 6-10; Start 10/13/18 at 09:30 Cefazolin Sodium/ Dextrose 50 ml @ 100 mls/hr Q8H IVPB Last administered on 10/14/18at 06:41; Admin Dose 100 MLS/HR; Start 10/13/18 at 15:00; Stop 10/14/18 at 14:59 Diagnostic Test (Pha) (Accu-Chek) 1 ea 02 XX ; Start 10/14/18 at 02:00 Insulin Aspart (Novolog Insulin Pen) NOVOLOG *MILD* ALGORITHM WITH MEALS BEDTIME SC Last administered on 10/13/18at 17:36; Admin Dose 1 UNIT; Start 10/13/18 at 18:05 Ciprofloxacin (Cipro) 500 mg BID@06,18 PO Last administered on 10/14/18at 06:00; Admin Dose 500 MG; Start 10/13/18 at 18:00; Stop 10/16/18 at 17:59 Pantoprazole (Protonix Tab) 40 mg DAILY@06 PO Last administered on 10/14/18at 11:53; Admin Dose 40 MG; Start 10/14/18 at 12:00 oJhn MARTINEZ Oct 14, 2018 13:03
[2018-10-14] MEDS ORDERED: CIPR500T4 PO (13:05)
--- NOTE | 2018-10-14 13:09 | DS ---
Date/Time of Note Date/Time of Note DATE: 10/14/18 TIME: 13:09 Discharge Summary Admission/Discharge Info Admit Date/Time Oct 13, 2018 at 05:16 Discharge Date/Time Discharge Diagnosis s/p partial thyroidectomy Patient Condition: Stable Consults DR Ford, surgeon, Dr Arguelles, endocrinology Procedures partial thyroidectomy Hospital Course HISTORY OF PRESENTING ILLNESS: This is a 58-year-old female with a past medical history of diabetes, hyperlipidemia, goiter, Enterococcus UTI, presented to the [facility] after being admitted by Dr. Ford for for right thyroid lobectomy. The patient was noted to have symptomatic right thyroid nodule, had enlargement of the right thyroid lobe causing pressure symptoms with swallowing. Majority of her complaint was pressure from the enlarged thyroid gland. Discussion was made with the patient's son regarding total thyroidectomy versus right lobectomy. Decision was made in the operating room. Both options were discussed and the patient, were okay to proceed with the surgery and the patient had right thyroid lobectomy done. Currently, the patient feels that she is feeling a little weak. She is trying to eat. On arrival on the floor, blood pressure 134/78, afebrile, heart rate 86, respirations 18. Labs showed white count 8.5, hemoglobin 13.2, platelet count 258. BMP within normal limit and patient was admitted for further management. 1. Right thyroid nodule, status post partial thyroidectomy with right lobectomy. 2. Diabetes mellitus type 2. 3. Hyperlipidemia. 4. Vitamin D deficiency. 5. Enterococcus urinary tract infection, questionable 6. HX of bilateral lens replacement after cataract 2006. During hospitalization pt was under pain control. We treated pt UTI with antibiotic. She was started on soft diet and were able to swallow and tolerated 1800 ADA diet. Her BS was under control. Dr Arguelles consulted her as endocrinology, he said that TSH might be increased in days or weeks, so he will determine if patient need a thyroid supplement. He found pt PCP and said that pathology report will be faxed to him. He offered to follow him after discharge, he has a Mandarin speaking associate, Dr Ford cleared her up for a discharge. Home Meds Active Scripts Ciprofloxacin Hcl* (Ciprofloxacin Hcl*) 500 Mg Tablet, 500 MG PO BID@,18 for 5 Days, TAB Prov:MICHELLE MOSELEY 3/8/19 Reported Medications Simvastatin* (Simvastatin*) 5 Mg Tablet, 20 MG PO QHS, #30 TAB 10/13/18 Cholecalciferol* (Vitamin D3*) 1,000 Unit Tablet, 2000 UNIT PO BID, TAB 10/13/18 Metformin* (Glucophage*) 500 Mg Tab, 500 MG PO BID, #30 TAB 10/13/18 Follow-up Plan PCP 1 week -endocrinology f/up dr Arguelles with Bryan Kelley -dr Ford office 2 weeks Primary Care Provider Not On Staff Doctor Time spent on discharge: < 30 minutes Pending Labs Laboratory Tests Test 10/13/18 17:29 10/13/18 20:52 10/14/18 04:36 10/14/18 07:58 Bedside 166 163 105 Glucose mg/dL (70-220) mg/dL (70-220) mg/dL (70-220) White Blood 10.0 Count 10^3/ul (4.8-1 0.8) Red Blood 4.29 Count 10^6/ul (4.20- 5.40) Hemoglobin 13.0 g/dl (12.0-16. 0) Hematocrit 38.7 % (37.0-47.0) Mean 90.2 Corpuscular fl (82.0-101.0 Volume ) Mean 30.3 Corpuscular pg (29.0-33.0) Hemoglobin Mean 33.6 Corpuscular g/dl (32.0-37. Hemoglobin Conc 0) ent Red Cell 11.8 Distribution % (11.5-14.5) Width Platelet Count 282 10^3/UL (140-4 15) Mean Platelet 8.8 Volume fl (7.4-10.4) Immature 0.600 Granulocytes % % (0.001-0.429 ) Neutrophils % 76.9 % (39.0-77.0) Lymphocytes % 16.0 % (15.0-51.0) Monocytes % 6.4 % (0.0-11.0) Eosinophils % 0.0 % (0.0-7.0) Basophils % 0.1 % (0.0-2.0) Nucleated Red 0.0 Blood Cells % /100WBC (0.0-0 .0) Immature 0.060 Granulocytes # 10^3/ul (0.0-0 .031) Neutrophils # 7.7 10^3/ul (1.6-7 .5) Lymphocytes # 1.6 10^3/ul (0.8-2 .9) Monocytes # 0.6 10^3/ul (0.3-0 .9) Eosinophils # 0.0 10^3/ul (0.0-0 .5) Basophils # 0.0 10^3/ul (0.0-0 .1) Nucleated Red 0.0 Blood Cells # 10^3/ul (0.0-0 .0) Sodium Level 144 mmol/L (135-14 4) Potassium 4.6 Level mmol/L (3.5-5. 1) Chloride Level 106 mmol/L (97-110 ) Carbon Dioxide 26 Level mmol/L (21-31) Anion Gap 12 (5-13) Blood Urea 9 mg/dl (7-20) Nitrogen Creatinine 0.39 mg/dl (0.44-1. 00) Est Glomerular > 60 Filtrat mL/min (>60) Rate mL/min Glucose Level 114 mg/dl (70-220) Hemoglobin A1c 5.9 % (0-5.9) Calcium Level 9.4 mg/dl (8.4-10. 2) Ionized Calcium 1.2 (Measured) mmol/L (1.1-1. 4) Total 0.3 Bilirubin mg/dl (0.2-1.3 ) Direct 0.00 Bilirubin mg/dl (0.00-0. 20) Indirect 0.3 Bilirubin mg/dl (0-1.1) Aspartate Amino 20 Transf (AST/SGO IU/L (15-46) T) Alanine 14 Aminotransferas IU/L (13-69) e (ALT/SGPT) Alkaline 55 Phosphatase IU/L (42-121) Total Protein 7.1 g/dl (6.1-8.1) Albumin 4.1 g/dl (3.3-4.9) Globulin 3.00 g/dl (1.3-3.2) Albumin/Globuli 1.36 n Ratio Test 10/14/18 11:52 Bedside 122 Glucose mg/dL (70-220) MICHELLE MOSELEY Oct 14, 2018 13:09
[2018-10-14 14:30] VITALS: BP 132/68; PULSE 85; RESP 16
== END 2018-10-14 18:05 | disposition home or self-care (01) | DRG 626 ==
LOC: REC 05:16 → PP2 10:59 → EDSTATUS 12:30
PROVIDERS: ADMIT Surgery; ATTEND Surgery
PROC: 0GBJ0ZZ Excision of Thyroid Gland Isthmus, Open Approach (ICD-10-PCS; 2018-10-13)
PROC: 0GTH0ZZ Resection of Right Thyroid Gland Lobe, Open Approach (ICD-10-PCS; principal; 2018-10-13 07:30)
DX: E04.1 Nontoxic single thyroid nodule (principal); N39.0 Urinary tract infection, site not specified; E11.9 Type 2 diabetes mellitus without complications; E78.5 Hyperlipidemia, unspecified; E55.9 Vitamin D deficiency, unspecified; B95.2 Enterococcus as the cause of diseases classified elsewhere
CPT/HCPCS: 80053; 82330; 82962; 83036; 85025; 86803; 88307; J0690; J1100; J1815; J2250; J2370; J2405; J3010; J7030